=== PATIENT | male | born 1975 | race Caucasian/White ===

== ENCOUNTER 2020-06-03 19:04 | Emergency (ER) | payer SELFPAY ==
[~2020-06-03] VITALS: Ht 157.5 cm; Wt 54.4 kg
[2020-06-03 19:11] VITALS: BP 129/88
--- NOTE | 2020-06-03 19:13 | NUR ---
PATIENT CAME TO ER BED 11 BIB [facility] FOR ALTERED MENTAL STATUS. PER [facility] REPORT, PATIENT WAS ESCORTED OUT OF A [employer] BUS BY [employer] OFFICERS AND IS BASELINE ALTERED, NOT RESPONSIVE TO QUESTIONS. PATIENT'S BLOOD SUGAR IS 100 UPON ARRIVAL. PATIENT'S PUPILS ARE EQUAL AND REACTIVE TO LIGHT BILATERALLY. SKIN IS DRY. PATIENT IS AAOX0. NO SOB. BREATHING EVENLY AND UNLABORED ON ROOM AIR. CONNECTED TO MONITOR.
[2020-06-03] MEDS ORDERED: NALOXONE PREFILLED SYRINGE 2 MG/2 ML SYRINGE ONE (19:31)
[2020-06-03] MEDS: IV NS 0.9% 1,000 ML BAG IV ONE (19:41)
[2020-06-03] MEDS: NALOXONE HCL 0.4 MG/ML AMPUL IV ONE (19:43)
[2020-06-03 19:44] LABS: BASOPHILS # (AUTO) 0.1 /CMM (0.0-0.2); BASOPHILS % (AUTO) 0.6 % (0.0-2.0); HEMATOCRIT 49 % (39-51); HEMOGLOBIN 16.7 g/dL (13.5-17.5); LYMPHOCYTES # (AUTO) 2.5 /CMM (0.8-4.8); LYMPHOCYTES % (AUTO) 24.7 % (20.0-44.0); MEAN CORPUSCULAR HGB CONC 34 g/dl (31.0-36.0); MEAN CORPUSCULAR VOLUME 90 fL (80-96); MONOCYTES # (AUTO) 0.4 /CMM (0.1-1.30); MONOCYTES % (AUTO) 4.2 % (2.0-12.0); NEUTROPHILS % (AUTO) 69.5 % (43.0-81.0); PLATELET COUNT (AUTO) 258 /CMM (150-450); RED BLOOD CELL COUNT(AUTO) 5.41 MIL/uL (4.5-6.0)
[2020-06-03 19:55] LABS: CALCIUM, SERUM 9.5 mg/dL (8.5-10.1); CARBON DIOXIDE 20 mmol/L (21-32); CHLORIDE 106 mmol/L (98-107); CREATININE 0.8 mg/dL (0.6-1.3); GLUCOSE 97 mg/dL (74-106); POTASSIUM 3.9 mmol/L (3.5-5.1); SODIUM SERUM 142 mmol/L (136-145); UREA NITROGEN, BLOOD 12 mg/dL (7-18)
[2020-06-03 20:11] LABS: ALANINE AMINOTRANSFERASE 25 U/L (12-78); ALBUMIN 4.5 g/dL (3.4-5.0); ALCOHOL, BLOOD 236 mg/dL (0-0); ALKALINE PHOSPHATASE 91 U/L (46-116); ASPARTATE AMINOTRANSFERASE 25 U/L (15-37); BILIRUBIN,DIRECT 0.1 mg/dL (0.0-0.2); BILIRUBIN,TOTAL 0.4 mg/dL (0.2-1.0); TOTAL PROTEIN, SERUM 8.4 g/dL (6.4-8.2)
[2020-06-03 20:12] LABS: ACETAMINOPHEN < 2 ug/ml (10-30); SALICYLATE 0.6 mg/dL (2.8-20.0)
--- NOTE | 2020-06-03 20:20 | NUR ---
PATIENT IS AWAKE. MD NOTIFIED. [employer] AT BEDSIDE. PATIENT IS NOT WILLING TO PROVIDE ANY RESPONSE TO QUESTIONS. 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 PATIENT ADMITS TO DRINKING ALCOHOL.
[2020-06-03 20:48] LABS: SERUM AMMONIA 24 umol/L (11-32)
--- NOTE | 2020-06-03 21:04 | NUR ---
IV removed. Catheter intact and site benign. Pressure and 4x4 applied to site. No bleeding noted.
[2020-06-03 21:13] LABS: CREATINE KINASE, TOTAL 170 U/L (39-308)
--- NOTE | 2020-06-03 21:20 | NUR ---
PATIENT IS AMBULATORY WITH A STEADY GAIT. PATIENT IS UNWILLING TO PROVIDE FULL NAME, "MY NAME IS YING, BUT I CAN'T GIVE YOU LAST LAST NAME. 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
--- NOTE | 2020-06-03 21:26 | NUR ---
Patient discharged to home in stable condition. Written and verbal after care instructions given. Patient verbalizes understanding of instruction.
--- NOTE | 2020-06-03 21:28 | NUR ---
PATIENT IS ARGUING WITH STAFF. PATIENT WILL NOT PROVIDE NAME AND DATE OF . PATIENT IS NON COOPERATIVE. ESCORTED OUT BY SECURITY. PATIENT IS PROVIDED CLOTHES AND WATER.
== END 2020-06-03 21:32 | disposition home or self-care (01) ==
LOC: ER 19:13
DX: F10.129 Alcohol abuse with intoxication, unspecified (principal); R41.82 Altered mental status, unspecified; Y90.7 Blood alcohol level of 200-239 mg/100 ml
CPT/HCPCS: 36415; 70450; 71045; 72125; 80048; 80076; 80307; 80329; 82140; 82550; 82962; 83605; 84443; 84484; 85025; 85730; 96361; 96374; 99285; G0480; J2310; J7030; J7040